=== PATIENT | male | born 1965 | race Two or more races ===

== ENCOUNTER 2022-02-12 17:19 | Outpatient (REF) | payer OTHER, SELFPAY ==
--- NOTE | ~2022-02-12 | XR_ITS ---
EXAMINATION: XR FOOT, LEFT CLINICAL INFORMATION: Fracture COMPARISON: None TECHNIQUE: AP, lateral, and oblique views of the left foot. FINDINGS: There is a minimally displaced fracture of the base of the fifth metatarsal XR/XR foot LT min 3V IMPRESSION: Minimally displaced fracture of the base of the fifth metatarsal.
== END 2022-02-12 17:20 | disposition home or self-care (01) ==
LOC: HO.HOSX 17:19
PROVIDERS: Visit Provider Physician Assistant
DX: S92.352D Displaced fracture of fifth metatarsal bone, left foot, subsequent encounter for fracture with routine healing (principal); W17.89XD Other fall from one level to another, subsequent encounter
CPT/HCPCS: 73630; 99202

== ENCOUNTER 2022-09-09 08:38 | Outpatient (REF) | payer OTHER, SELFPAY ==
[2022-09-09 14:24] LABS: MANUAL DIFF FLAG NO
[2022-09-09 14:28] LABS: Eosinophils Absolute Auto 0.1 X10*3/uL (0.0-0.4); Eosinophils Percent Auto 1.7 % (0-4); Hematocrit 45.9 % (42.0-52.0); Hemoglobin 14.9 g/dl (14.0-18.0); Imm Gran Abs Auto 0.01 X10*3/uL (0.00-0.03); Imm Gran Pct Auto 0.2 % (0.0-0.4); Lymphocytes Absolute Auto 1.3 X10*3/uL (1.2-4.9); Lymphocytes Percent Auto 31.3 % (20-40); Mean Corpuscular HGB Conc 32.5 g/dl (31.0-36.0); Mean Corpuscular Hemoglobin 29.2 pg (27.0-33.0); Monocytes Absolute Auto 0.3 X10*3/uL (0.1-1.2); Monocytes Percent Auto 7.2 % (2-11); Neutrophils Absolute Auto 2.5 x10*3/uL (2.0-8.3); Neutrophils Percent Auto 59.6 % (45-73); Platelet Count 200 X10*3/uL (160-400); Red Cell Distribution Width 12.4 % (11.0-16.0); White Blood Count 4.2 X10*3/uL (4.8-10.8)
[2022-09-09 15:21] LABS: Anion Gap 15 (12-20); Blood Urea Nitrogen 16 mg/dL (9-16); Calcium 9.4 mg/dL (8.4-10.2); Carbon Dioxide 25 mmol/L (22-29); Chloride 105 mmol/L (96-108); Cholesterol 204 mg/dL; Estimated Glomerular Filt Rate > 60; Glucose Fasting 74 mg/dL (60-99); HDL Cholesterol 46 mg/dL; LDL Cholesterol Calculated 140 mg/dl; Potassium 3.9 mmol/L (3.3-5.1); Sodium 141 mmol/L (135-145); Triglycerides 92 mg/dL
[2022-09-09 15:36] LABS: TSH reflex Free T4 2.48 uIU/mL (0.32-4.0); Vitamin D 25-OH Total 32.4 ng/mL (>30)
[2022-09-09 22:22] LABS: Vitamin B12 > 2000 pg/mL (200-900)
== END 2022-09-09 08:39 | disposition home or self-care (01) ==
LOC: HO.CHCLDS 08:38
PROVIDERS: Visit Provider Internal Medicine
DX: R51.9 Headache, unspecified (principal)
CPT/HCPCS: 36415; 80048; 80061; 82306; 82607; 84443; 85025

== ENCOUNTER 2023-03-14 16:09 | Outpatient (REF) | payer MEDICAID, OTHER, SELFPAY ==
[2023-03-14 17:33] LABS: MANUAL DIFF FLAG NO
[2023-03-14 17:38] LABS: Basophils Percent Auto 0.2 % (0-2); Eosinophils Absolute Auto 0.2 X10*3/uL (0.0-0.4); Eosinophils Percent Auto 4.1 % (0-4); Hematocrit 42.4 % (42.0-52.0); Hemoglobin 14.3 g/dl (14.0-18.0); Imm Gran Abs Auto 0.01 X10*3/uL (0.00-0.03); Imm Gran Pct Auto 0.2 % (0.0-0.4); Lymphocytes Absolute Auto 1.9 X10*3/uL (1.2-4.9); Lymphocytes Percent Auto 41.3 % (20-40); Mean Corpuscular HGB Conc 33.7 g/dl (31.0-36.0); Mean Corpuscular Hemoglobin 30.2 pg (27.0-33.0); Mean Corpuscular Volume 89.5 fL (80.0-98.0); Monocytes Absolute Auto 0.5 X10*3/uL (0.1-1.2); Monocytes Percent Auto 10.9 % (2-11); Neutrophils Percent Auto 43.3 % (45-73); Platelet Count 240 X10*3/uL (160-400); Red Blood Count 4.74 X10*6/uL (4.60-5.80); Red Cell Distribution Width 12.5 % (11.0-16.0); White Blood Count 4.7 X10*3/uL (4.8-10.8)
[2023-03-14 18:13] LABS: Erythrocyte Sedimentation Rate 3 MM/HR (0-15)
[2023-03-14 18:19] LABS: Uric Acid 5.1 mg/dL (3.4-7.0)
== END 2023-03-14 16:10 | disposition home or self-care (01) ==
LOC: HO.HHCL 16:09
PROVIDERS: Visit Provider Internal Medicine
DX: M25.561 Pain in right knee (principal); M25.562 Pain in left knee; G89.29 Other chronic pain; M79.671 Pain in right foot; M79.672 Pain in left foot
CPT/HCPCS: 36415; 84550; 85025; 85652

== ENCOUNTER 2023-03-16 12:21 | Outpatient (REF) | payer MEDICAID, OTHER, SELFPAY ==
--- NOTE | ~2023-03-16 | XR_ITS ---
EXAMINATION: 1. RADIOGRAPHS RIGHT KNEE 2. RADIOGRAPHS LEFT KNEE 3. RADIOGRAPHS RIGHT FOOT 4. RADIOGRAPHS LEFT FOOT CLINICAL INFORMATION: Bilateral knee and foot pain. COMPARISON: Left foot x-rays 02/12/2022 TECHNIQUE: 3 views of each knee and 3 views of each foot were obtained. FINDINGS: Right knee: No fracture or dislocation. Tiny suprapatellar joint effusion. Joint spaces are well-maintained. Small tricompartmental marginal osteophytes. No localized soft tissue swelling of the anterior knee. Left knee: No fracture or dislocation. No suprapatellar joint effusion small tricompartmental marginal osteophytes. No soft tissue swelling the anterior knee. Right foot: Bones of the midfoot are well aligned. No tarsal, metatarsal or phalangeal fracture. Prominent hallux valgus deformity of the first toe with associated mild to moderate degenerative changes of the first MTP joint. No localized soft tissue swelling. No radiopaque foreign body. No gross ankle joint effusion. Left foot: Bones of the midfoot are well aligned. No tarsal, metatarsal or phalangeal fracture. Complete interval healing of prior fracture involving the base of the fifth metatarsal. Mild to moderate hallux valgus deformity of the first toe with mild associated degenerative changes of the first MTP joint. No localized soft tissue swelling. No radiopaque foreign body. No gross ankle joint effusion. XR/XR knee LT 3V IMPRESSION: 1. 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 2. Hallux valgus deformities of both feet. No fracture of either foot.
--- NOTE | ~2023-03-16 | XR_ITS ---
EXAMINATION: 1. RADIOGRAPHS RIGHT KNEE 2. RADIOGRAPHS LEFT KNEE 3. RADIOGRAPHS RIGHT FOOT 4. RADIOGRAPHS LEFT FOOT CLINICAL INFORMATION: Bilateral knee and foot pain. COMPARISON: Left foot x-rays 02/12/2022 TECHNIQUE: 3 views of each knee and 3 views of each foot were obtained. FINDINGS: Right knee: No fracture or dislocation. Tiny suprapatellar joint effusion. Joint spaces are well-maintained. Small tricompartmental marginal osteophytes. No localized soft tissue swelling of the anterior knee. Left knee: No fracture or dislocation. No suprapatellar joint effusion small tricompartmental marginal osteophytes. No soft tissue swelling the anterior knee. Right foot: Bones of the midfoot are well aligned. No tarsal, metatarsal or phalangeal fracture. Prominent hallux valgus deformity of the first toe with associated mild to moderate degenerative changes of the first MTP joint. No localized soft tissue swelling. No radiopaque foreign body. No gross ankle joint effusion. Left foot: Bones of the midfoot are well aligned. No tarsal, metatarsal or phalangeal fracture. Complete interval healing of prior fracture involving the base of the fifth metatarsal. Mild to moderate hallux valgus deformity of the first toe with mild associated degenerative changes of the first MTP joint. No localized soft tissue swelling. No radiopaque foreign body. No gross ankle joint effusion. XR/XR foot LT min 3V IMPRESSION: 1. 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 2. Hallux valgus deformities of both feet. No fracture of either foot.
--- NOTE | ~2023-03-16 | XR_ITS ---
EXAMINATION: 1. RADIOGRAPHS RIGHT KNEE 2. RADIOGRAPHS LEFT KNEE 3. RADIOGRAPHS RIGHT FOOT 4. RADIOGRAPHS LEFT FOOT CLINICAL INFORMATION: Bilateral knee and foot pain. COMPARISON: Left foot x-rays 02/12/2022 TECHNIQUE: 3 views of each knee and 3 views of each foot were obtained. FINDINGS: Right knee: No fracture or dislocation. Tiny suprapatellar joint effusion. Joint spaces are well-maintained. Small tricompartmental marginal osteophytes. No localized soft tissue swelling of the anterior knee. Left knee: No fracture or dislocation. No suprapatellar joint effusion small tricompartmental marginal osteophytes. No soft tissue swelling the anterior knee. Right foot: Bones of the midfoot are well aligned. No tarsal, metatarsal or phalangeal fracture. Prominent hallux valgus deformity of the first toe with associated mild to moderate degenerative changes of the first MTP joint. No localized soft tissue swelling. No radiopaque foreign body. No gross ankle joint effusion. Left foot: Bones of the midfoot are well aligned. No tarsal, metatarsal or phalangeal fracture. Complete interval healing of prior fracture involving the base of the fifth metatarsal. Mild to moderate hallux valgus deformity of the first toe with mild associated degenerative changes of the first MTP joint. No localized soft tissue swelling. No radiopaque foreign body. No gross ankle joint effusion. XR/XR knee RT 3V IMPRESSION: 1. 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 2. Hallux valgus deformities of both feet. No fracture of either foot.
--- NOTE | ~2023-03-16 | XR_ITS ---
EXAMINATION: 1. RADIOGRAPHS RIGHT KNEE 2. RADIOGRAPHS LEFT KNEE 3. RADIOGRAPHS RIGHT FOOT 4. RADIOGRAPHS LEFT FOOT CLINICAL INFORMATION: Bilateral knee and foot pain. COMPARISON: Left foot x-rays 02/12/2022 TECHNIQUE: 3 views of each knee and 3 views of each foot were obtained. FINDINGS: Right knee: No fracture or dislocation. Tiny suprapatellar joint effusion. Joint spaces are well-maintained. Small tricompartmental marginal osteophytes. No localized soft tissue swelling of the anterior knee. Left knee: No fracture or dislocation. No suprapatellar joint effusion small tricompartmental marginal osteophytes. No soft tissue swelling the anterior knee. Right foot: Bones of the midfoot are well aligned. No tarsal, metatarsal or phalangeal fracture. Prominent hallux valgus deformity of the first toe with associated mild to moderate degenerative changes of the first MTP joint. No localized soft tissue swelling. No radiopaque foreign body. No gross ankle joint effusion. Left foot: Bones of the midfoot are well aligned. No tarsal, metatarsal or phalangeal fracture. Complete interval healing of prior fracture involving the base of the fifth metatarsal. Mild to moderate hallux valgus deformity of the first toe with mild associated degenerative changes of the first MTP joint. No localized soft tissue swelling. No radiopaque foreign body. No gross ankle joint effusion. XR/XR foot RT min 3V IMPRESSION: 1. 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 2. Hallux valgus deformities of both feet. No fracture of either foot.
== END 2023-03-16 12:22 | disposition home or self-care (01) ==
LOC: HO.HHCX 12:21
PROVIDERS: Visit Provider Internal Medicine
DX: M25.561 Pain in right knee (principal); M25.562 Pain in left knee; M79.671 Pain in right foot; M79.672 Pain in left foot; G89.29 Other chronic pain
CPT/HCPCS: 73562; 73630

== ENCOUNTER 2023-05-19 09:05 | Outpatient (REF) | payer MEDICAID, OTHER, SELFPAY ==
[2023-05-19 15:02] LABS: Alanine Aminotransferase 28 U/L (0-40); Albumin Level 4.3 g/dL (3.5-5.0); Alkaline Phosphatase 90 U/L (39-117); Anion Gap 10 (12-20); Aspartate Amino Transferase 26 U/L (5-37); Bilirubin Total 0.5 mg/dL (0.0-1.0); Blood Urea Nitrogen 16 mg/dL (9-16); Calcium 8.9 mg/dL (8.4-10.2); Carbon Dioxide 28 mmol/L (22-29); Chloride 106 mmol/L (96-108); Cholesterol 180 mg/dL (<200); Estimated Glomerular Filt Rate > 60; Glucose Random 84 mg/dL (60-115); HDL Cholesterol 44 mg/dL (>40); LDL Cholesterol Calculated 118 mg/dL (<100); Potassium 3.8 mmol/L (3.3-5.1); Sodium 140 mmol/L (135-145); Total Protein 7.3 g/dL (6.5-8.0); Triglycerides 90 mg/dL (<150)
== END 2023-05-19 09:06 | disposition home or self-care (01) ==
LOC: HO.CHCLDS 09:05
PROVIDERS: Visit Provider Internal Medicine
DX: E66.9 Obesity, unspecified (principal)
CPT/HCPCS: 36415; 80053; 80061